=== PATIENT | male | born 1980 | race Caucasian/White ===

== ENCOUNTER 2024-09-28 16:40 | Emergency (ER) | payer BC, SELFPAY ==
--- OUTSIDE RECORDS SUMMARY | 2021-07-19 19:00 | XMS_ITS | Continuity of Care Document ---
Author Organization [facility] Address [address] [address] [place] [address] Phone Care Team Providers Care Plate Driller Name Role Phone Link Diogo LIU Unavailable Unavailable Procedures Procedure Date Init Hosp-da E&m Mod Severity 2 Conscious Sedation Ugi Endo; Dx W/wo Collec Specm Ugi Endo; Dx W/wo Collec Specm 17 Subsqt Hosp-da E&m Minr Compl 7 Init Hosp-da E&m Mod Severity 7 Advance Directives Directive Yes / No Effective Date File Name No Information Encounters Encounter Description Practice Location Reason(s) For Visit Diagnoses Date Provider Providers Copied on Encounter [facility], [address] [address], [place], [place], [id number], tel:[phone] [facility] No Information Link MD Lind. [address] [place] [address], [id number], [place]. tel:[phone] Init Hosp-da E&m Mod Severity [facility], [address] [address], [place], [place], [id number], tel:[phone] [facility] No Information Link MD Lind. [address] [address], [place], [place], [id number], [place]. tel:[phone] Referring Provider: [place], [address]. tel:[phone] [facility], [address] [address], [place], [place], [id number], tel:[phone] [facility] No Information Hillary Berger. [address] [place] [address], [address] [address], [place], [place], [id number], . tel:[phone] Referring Provider: Delia Mccoy, [facility], [place], [place], [facility]. tel:[phone] Subsqt Hosp-da E&m Minr Compl [facility], [address] [address], [place], [place], [id number], tel:[phone] [facility] No Information Claudia Estes. [address] [place] [address], [facility] [address], [place], [place], [id number], . tel:[phone] Referring Provider: Delia Mccoy, [facility] [place], [place], [facility]. tel:[phone] Init Hosp-da E&m Mod Severity [facility] [place], [address] [address], [place], [place], [id number], tel:[phone] [facility] No Information Hillary Berger. [address] [place] [address], [id number], . tel:[phone] Referring Provider: Delia Mccoy, [facility] [place], [place], [facility]. tel:[phone] Family History Family Member Type Diagnosis Age At Onset No Information Payers Payer name Insurance type Covered republican ID Authoriza tion(s) No Information Social History Type Description Quantity Date Captured Comments Sex Male Smoking Status No Information Chief Complaint And Reason For Visit No Information Reason For Referral Reason For Referral No Information History Of Present Illness Encounter Date Complaint History Of Prese nt Illness No Information Functional Status Date Functional Assessmen t No Information Instructions Date Instruction Additional Infor mation No Information Assessments Type Assessment Date No Information Patient Care Teams Name Effective Dates (start - stop) Status Members No Information
[2024-09-28] VITALS (17 sets, daily range): BP systolic 85–153; BP diastolic 62–124; PULSE 44–92; RESP 13–87; TEMP 36.8; O2SAT 91–99; BMI 40.9
--- NOTE | 2024-09-28 16:51 | ED_ITS ---
HPI - General Adult General Date Seen: 09/28/24 Chief complaint: Chest Pain Stated complaint: Shortness of Breath, Chest pains Time Seen by Provider: 09/28/24 16:51 History of Present Illness HPI narrative: This is a pleasant 43-year-old gentleman presenting to the ER with chest pain. Beginning yesterday afternoon, while he was relaxing he has been experiencing some substernal left-sided chest tightness and squeezing. Along with that he has had some shortness of breath. His symptoms were fairly significant overnight and made it difficult night sleep. The symptoms have been continuous since onset yesterday. No clear exacerbating or alleviating factors. Does not change with position, exertion or rest, eating or not eating. No recent illness. No recent cough or fever. No recent travel. No history of DVT or PE. No swelling in his ankles or legs. No associated abdominal pain. No pain radiating up to his jaw, down his arms, or through to his back. He does incidentally mentions that he has had some trouble with some low back pain over the past several weeks. That is really not white came to the ER today. He has an important past medical history notable for pheochromocytoma which apparently caused a low ejection fraction and cardiomyopathy. Also apparently has had 1 or 2 prior strokes and 1 prior seizure. This was evaluated and treated through the [facility] system. He had surgical resection of his adrenal/pheochromocytomas done at [facility] about 10 or 12 years ago. He is chronically on hydrocortisone and fludrocortisone to supplement his adrenal hormones after his adrenalectomies. When he gets sick he does take a stress d ose of these hormones and did take his stress dose this morning. He generally follows with [facility] through [facility]. He had had angiogram about 5 or 6 years ago that was normal. He had an echo few years ago that he thinks showed his ejection fraction was fairly normal, but he cannot recall for sure. His only meds are his renal hormones. He is not on any long-term diuretics, blood pressure meds or other heart meds. He is not on any anti-platelet medications. No seizure meds. Nonsmoker. He lives in [place]. He chose to come here to the ER in [facility] because his mother was seen here recently and did not to wait very long. He was worried he might have to wait several hours if he went to the ER at [facility]. Related Data Home Medications ?Medication ?Instructions ?Recorded ?Confirmed hydrocortisone 10 mg tablet 5 mg PO BID 09/28/2409/28 (Cortef) Allergies Allergy/AdvReac Type Severity Reaction Status Date / Time No Known Drug Allergies Allergy Verified 09/28/24 19:15 Exam Narrative: Exam Narrative: Constitutional: Appears well-developed and well-nourished. He is robust and very tall. Heavyset. Alert. Conversant. Non toxic. HENT: Head: Atraumatic. Nose: Nose normal. Mouth/Throat: Oral mucosa is clear and moist. no trismus. Pharynx normal. Tonsils symmetric. No tonsillar enlargement, erythema, or exudate. Eyes: Conjunctivae normal. EOM normal. Pupils equal, round, and reactive to light. No scleral icterus. Neck: Normal range of motion. Neck supple. No tracheal deviation present. No JVD Cardiovascular: Normal rate, regular rhythm. No gallop. No friction rub. No murmur heard. Symmetric radial and PT artery pulses Pulmonary/Chest: Effort normal. No stridor. No respiratory distress. No wheezes. No rales. No rhonchi . No tenderness. Abdominal: Soft. Bowel sounds normal. No distension. No mass. No tenderness. No rebound. No guarding. Musculoskeletal: RUE: Normal range of motion. No tenderness. No deformity LUE: Normal range of motion. No tenderness. No deformity RLE: Normal range of motion. No edema. No tenderness. No deformity LLE: Normal range of motion. No edema. No tenderness. No deformity Neurological: Alert and oriented to person, place, and time. Normal strength. CN II-VII intact. No sensory deficit. GCS eye subscore is 4. GCS verbal subscore is 5. GCS motor subscore is 6. Normal coordination Skin: Skin is warm and dry. No rash noted. No pallor. Normal capillary refill. Psychiatric: Normal mood. Normal affect. Const: Vital Signs, click to edit/add: Vital Signs - 24 hr 09/28/24 16:46 09/28/24 17:07 09/28/24 17:16 Temperature 98.3 F Pulse Rate 84 92 Pulse Rate [Pulse Oximeter] 58 L Respiratory Rate 18 13 87 H Blood Pressure 85/74 L 108/90 H Blood Pressure [Ri ght Upper Arm] 124/79 Pulse Oximetry 96 96 95 Oxygen Delivery Me thod Room Air 09/28/24 17:18 09/28/24 17:32 09/28/24 17:46 Temperature Pulse Rate 86 83 76 Pulse Rate [Pulse Oximeter] Respiratory Rate 20 13 14 Blood Pressure 104/86 111/98 H 136/124 H Blood Pressure [Ri ght Upper Arm] Pulse Oximetry 94 95 91 Oxygen Delivery Me thod 09/28/24 18:10 09/28/24 18:15 09/28/24 18:17 Temperature Pulse Rate 63 87 Pulse Rate [Pulse Oximeter] Respiratory Rate 15 23 Blood Pressure 101/83 Blood Pressure [Ri ght Upper Arm] 130/110 H Pulse Oximetry 96 94 Oxygen Delivery Me thod 09/28/24 18:32 09/28/24 18:47 09/28/24 19:02 Temperature Pulse Rate 48 L 44 L 54 L Pulse Rate [Pulse Oximeter] Respiratory Rate 19 17 16 Blood Pressure 153/91 H 123/76 100/76 Blood Pressure [Ri ght Upper Arm] Pulse Oximetry 95 93 94 Oxygen Delivery Me thod 09/28/24 19:32 09/28/24 19:45 09/28/24 20:01 Temperature Pulse Rate 62 76 58 L Pulse Rate [Pulse Oximeter] Respiratory Rate 22 14 Blood Pressure 122/79 99/85 Blood Pressure [Ri ght Upper Arm] Pulse Oximetry 95 99 97 Oxygen Delivery Me thod 09/28/24 20:32 09/28/24 21:03 Temperature Pulse Rate 60 56 L Pulse Rate [Pulse Oximeter] Respiratory Rate 13 Blood Pressure 97/65 110/62 Blood Pressure [Ri ght Upper Arm] Pulse Oximetry 95 98 Oxygen Delivery Me thod Course Course ED Course: Recheck-multiple initial blood pressure rechecks were seemed a little bit inaccurate with very narrow pulse pressure. We had the nurses reposition cough, change cuff and then check manual. Blood pressures all seem to be narrow pulse pressure. With his borderline low blood pressure be reluctant to give nitro for his chest pain. We did give a slow dose of fentanyl and this did feel better. Subsequently blood pressures seem to normalize and pulse pressure widened. He was feeling better. Recheck-feeling better. Vital stable. Sinus rhythm monitor. Vital Signs Vital signs: Initial Vital Signs Temperature 98.3 F 09/28/24 16:46 Temperature Source Oral 09/28/24 16:46 Pulse Rate 58 L 09/28/24 16:46 Respiratory Rate 18 09/28/24 16:46 Blood Pressure 124/79 09/28/24 16:46 Blood Pressure Mean 94 09/28/24 16:46 Pulse Oximetry 96 09/28/24 16:46 Oxygen Delivery Method Room Air 09/28/24 16:46 Vital Signs Temperature 98.3 F 09/28/24 16:46 Pulse Rate 58 L 09/28/24 16:46 Respiratory Rate 18 09/28/24 16:46 Blood Pressure 124/79 09/28/24 16:46 Pulse Oximetry 96 09/28/24 16:46 Oxygen Delivery Method Room Air 09/28/24 16:46 Temperature 98.3 F 09/28/24 16:46 Pulse Rate 56 L 09/28/24 21:03 Respiratory Rate 13 09/28/24 21:03 Blood Pressure 110/62 09/28/24 21:03 Pulse Oximetry 98 09/28/24 21:03 Oxygen Delivery Method Room Air 09/28/24 16:46 Medications Administered Medications: Discontinued Medications Generic Name Dose Route Start Last Admin Trade Name Freq PRN Reason Stop Dose Admin Aspirin 324 mg 09/28/24 17:06 09/28/24 17:14 Aspirin 81 Mg Tab.Chew PO 09/28/24 17:07 324 mg ONCE ONE Administration Fentanyl 50 mcg 09/28/24 18:12 09/28/24 18:15 Fentanyl 100 Mcg/2 Ml Inj IVP 50 mcg Q5M PRN Administration Sodium Chloride 1,000 mls @ 1,000 mls/hr 09/28/24 18:00 09/28/24 19:01 0.9 % Sodium Chloride 1000 Ml IV 09/28/24 18:59 Infused .Q1H HELLEN Infusion Medical Decision Making [facility] Narrative Medical decision making narrative: This patient presents to the ER today for evaluation of chest pain and shortness or breath began yesterday.. Differential was broad. No evidence of palpitations, syncope or other cardiac dysrhythmia. We considered possible ACS, however workup with EKG and troponin is negative. Although pain is been going on since last night and initial troponin was normal, we did check a delta troponin and is stable and not rising. Given time since onset of symptoms, I do not think the patient needs to be admitted for further sets of enzymes. EKG shows no evidence for pericarditis. Clinical presentation not suggestive of myocarditis. Chest x-ray shows no evidence for pneumonia, pneumothorax, pulmonary edema, pleural effusion, rib fracture, cardiomegaly. Mediastinum is normal on the x-ray. However with the patient's chest pain and recent low back pain, consider aortic pathology. CT angiogram of his aorta shows normal aorta. No evidence for dissection or aneurysm. There are incidental findings on the angiogram including signs of splenic artery stenosis which is not contributing to his chest pain. No signs of any splenic artery aneurysm rupture. There is also a small pulmonary nodule for which I recommend follow-up in [address] imaging. Discussed in detail with the patient and provided printed copies of his CT him to take to his PCP to arrange necessary follow-up. We considered PE for this patient. Screening D-dimer is normal. No wheezing or bronchospasm to suggest COPD/asthma. No signs of chest wall cellulitis, shingles, injury. With reasonable clinical confidence, I think the patient is safe for outpatient follow up. Discussed return precautions. Questions answered. Patient voices comfort with the plan. Lab Data Labs: Lab Results 09/28/24 09/28/24 09/28/24 Range/Units 17:05 17:07 19:09 WBC 6.43 (4.50-11.00) K/uL RBC 5.27 (4.30-5.90) m/uL Hgb 16.3 (13.5-17.5) gm/dL Hct 46.9 (37.0-53.0) % MCV 89 (80-100) fL MCH 31 (26-34) pg MCHC 35 (32-36) gm/dL RDW Coeff of Autumn 12.5 (11.5-15.5) % Plt Count 258 (140-440) K/uL Neut % (Auto) 44.3 (42.0-72.0) % Lymph % (Auto) 39.0 (20-44) % Powell % (Auto) 8.7 (0.0-11.0) % Eos % (Auto) 7.0 (0.0-7.0) % Baso % (Auto) 0.8 (0.0-3.0) % Neut # (Auto) 2.85 (1.7-7.0) K/uL Lymph # (Auto) 2.51 (0.90-2.90) K/uL Powell # (Auto) 0.60 (0.00-0.90) K/UL Eos # (Auto) 0.45 (0.00-0.50) K/uL Baso # (Auto) 0.05 (0.00-0.30) K/uL Abs Immat Gran (auto) 0.01 (0.00-0.30) K/uL Imm/Tot Granulo (auto) 0.2 % INR 1.03 (0.91-1.10) D-Dimer Quant (PE/DVT) < 0.27 (0.00-0.50) ug/ml Sodium 137 (135-149) mmol/L Potassium 3.3 L (3.6-5.1) mmol/L Chloride 107 (96-114) mmol/L Carbon Dioxide 23 (20-32) mmol/L Anion Gap 7 (7-15) mEq/L BUN 12 (5-24) mg/dL Creatinine 1.0 (0.5-1.5) mg/dL Estimated Creat Clear 120.60 Estimated GFR 95 ml/min Glucose 119 H (60-115) mg/dL Calcium 9.8 (8.4-10.6) mg/dL NT-Pro-B Natriuret Pep 137 (See Note) pg/mL POC Troponin I 0.01 0.01 (0.01-0.04) ng/ml Imaging Data Chest x-ray: Attestation: I have reviewed the pertinent imaging results. Radiologist's impression: IMPRESSION: Mild cardiomegaly. No edema or effusion seen. CT Chest/Ab/Pelvis: Attestation: I have reviewed the pertinent imaging results. Radiologist's impression: Impression: 1. No CT evidence of an acute process involving the chest/abdomen/pelvis; specifically, no aortic dissection. 2. There is focal narrowing of the proximal celiac trunk with poststenotic dilatation, to correlate with symptoms of celiac artery compression syndrome. 3. Solid 7 millimeter pulmonary nodule in the right lower lobe. Recommend correlation with prior imaging if available; otherwise, recommend follow-up chest CT in 3-6 months per Fleischner criteria. 4. Additional incidental findings as detailed above. ECG Data Attestation: I personally reviewed and interpreted this ECG as follows: Interpretation: Sinus tachycardia (computer interpretation is ?undetermined rhythm? but I can see P waves visible in lead V1, V2, V4, V5, V6. Frequent PVCs Rate 103 IA interval about 120 QRS axis is normal. Nonspecific T-wave flattening. No acute ST segment elevation or depression. No old available EKGs for comparison. QTC 482 Discharge Plan Discharge Clinical Impression: Chest pain, Incidental pulmonary nodule, Celiac artery stenosis Patient Disposition: Home, Self-Care Condition: Stable Instructions: Chest Pain (DC), Pulmonary Nodules (ED) Additional Instructions: As we discussed, so far all of your test for your heart and lungs look good. I want her to monitor your chest pain carefully if you have worsening symptoms come back to the ER right away. If you are not completely achieved, please recheck with your regular doctor within 2-3 days. Please follow-up with your regular doctor in bring your lab tests and CT report with you. Ask your doctor to evaluate the findings on CT scan and arrange the necessary follow ups. Ask your doctor to arrange a follow-up CT scan of your lungs in about 6 months to recheck the ear pulmonary nodule. Also ask your doctor to arrange any necessary follow-up for your narrow celiac artery. Prescriptions: No Action hydrocortisone [Cortef] 10 mg tablet 5 mg PO BID Patient Comments: 10 in AM 5 in afternnon Follow Up/Referrals: Provider,Not a Local [Primary Care Provider, Family Practice] Stand Alone Forms: [employer] Info Instructions
--- NOTE | 2024-09-28 17:07 | CRLHL7_ITS ---
For Patients: As a result of the Cures Act, medical imaging exams and procedure reports are released immediately into your electronic medical record. You may view this report before your referring provider. If you have questions, please contact your health care provider. INDICATION: Chest pain, short of breath, history of cardiomyopathy COMPARISON: None. TECHNIQUE: PA and lateral 2 view chest. FINDINGS: Lung volumes are good. No focal or diffuse opacities. No pulmonary edema. No pleural effusion. No pneumothorax. No pneumomediastinum. Mild cardiomegaly. Normal upper mediastinal contours. Bones: Mild wedging of a few vertebral bodies. Disc degeneration. IMPRESSION: Mild cardiomegaly. No edema or effusion seen. Dictated by Barbara Ruelas MD @ 09/28/2024 5:55:21 PM (Electronically Signed)
[2024-09-28] MEDS: ASPIRIN 81 MG TAB.CHEW 324 MG PO (17:14)
[2024-09-28 17:20] LABS: Hematocrit 46.9 % (37.0-53.0); Hemoglobin* 16.3 gm/dL (13.5-17.5); Immature Granulocytes Abs Auto 0.01 K/uL (0.00-0.30); Immature Granulocytes Pct Auto 0.2 %; Lymphocytes Absolute Auto 2.51 K/uL (0.90-2.90); Mean Corpuscular HGB Conc 35 gm/dL (32-36); Mean Corpuscular Hemoglobin 31 pg (26-34); Mean Corpuscular Volume 89 fL (80-100); RDW Coefficient of Variation % 12.5 % (11.5-15.5); Red Blood Count 5.27 m/uL (4.30-5.90); Slide Review Reflex No; White Blood Count* 6.43 K/uL (4.50-11.00)
[2024-09-28 17:30] LABS: Chloride* 107 mmol/L (96-114); Potassium* 3.3 mmol/L (3.6-5.1); Sodium* 137 mmol/L (135-149)
[2024-09-28 17:33] LABS: Blood Urea Nitrogen* 12 mg/dL (5-24); Creatinine* 1.0 mg/dL (0.5-1.5); Est. Creatinine Clearance* 120.60; Estimated Glomerular Filt Rate 95 ml/min
[2024-09-28 17:34] LABS: Anion Gap 7 mEq/L (7-15); Calcium* 9.8 mg/dL (8.4-10.6); Carbon Dioxide* 23 mmol/L (20-32); Glucose* 119 mg/dL (60-115)
[2024-09-28 17:36] LABS: INR 1.03 (0.91-1.10); Prothrombin Time 14.3 Seconds
[2024-09-28 17:45] LABS: NT Pro B Type NatriureticPept* 137 pg/mL (See Note)
[2024-09-28 17:47] LABS: Troponin, Point-of-Care* 0.01 ng/ml (0.01-0.04)
--- OUTSIDE RECORDS SUMMARY | 2024-09-28 17:48 | XMS_ITS | Encounter Summary ---
Author Organization [facility] Address [address] [place] [address] Care Team Providers Care Mds Rn Name Role Phone Delia Gomez APRN, CNP Primary Care Provid er Delia Gomez APRN, CNP Unavailable [phone] Keyona Ferrari MD Unavailable [phone] Keyona Ferrari MD Unavailable [phone] Delia Gomez APRN TAX COMPLIANCE OFFICER Unavailable [phone] Keyona Ferrari MD Unavailable [phone] Encounter Details Date Type Department Care Team (Late st Contact Info) Description 06/22/2021 MyC Medical Advice [facility] Specialty [address] [address] Mayte Mcdowell CNA Social History Tobacco Use Types Packs/Day Years Used Date Smoking Tobacco: Never Smokeless Tobacco: Never Alcohol Use Standard Drinks/Week Comments Yes 0 (1 standard drink = 0.6 oz pur e alcohol) weekly 2-3 drinks PHQ-2 Answer Date Recorded PHQ-2 Score 0 05/23/2018 Sex and Gender Information Value Date Recorded Sex Assigned at Male 12/06/2020 7:06 PM CDT Legal 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 No / Unsure 06/01/2021 2:05 PM CDT documented as of this encounter Plan of Treatment Not on file documented as of this encounter Visit Diagnoses Not on filedocumented in this encounter Additional Health Concerns Infection Onset Date Last Indicated Resolved Time Rule Out COVID-19 02/05/2023 02/05/2023 02/06/2023 11:50 AM AERIAL INSTALLER Rule Out COVID-19 04/18/2023 04/18/2023 04/18/2023 7:49 PM AERIAL INSTALLER documented as of this encounter Care Teams Mds Rn Relationship Specialty Start Date End Date Delia Gomez APRN TAX COMPLIANCE OFFICER [address] [address] PCP - General Nurse Practitioner - Family 08/15/16 Delia Gomez APRN TAX COMPLIANCE OFFICER [address] [address] Assigned PCP 09/23/17 03/03/22 Keyona Ferrari MD [address] [address]348[address] Endocrinology, Diabetes, and Metabolism 03/03/21 Keyona Ferrari MD [address] [address] Assigned Endocrinology Provider 06/05/21 12/09/23 Delia Gomez APRN TAX COMPLIANCE OFFICER [address] [address] Assigned PCP 05/13/22 02/08/24 Keyona Ferrari MD [address] [address] Assigned Endocrinology Provider 06/08/24 documented as of this encounter
--- OUTSIDE RECORDS SUMMARY | 2024-09-28 17:48 | XMS_ITS | Encounter Summary ---
Author Organization [facility] Address [address] [place] [address] Care Team Providers Care Watermaster Name Role Phone Delia Gomez APRN, CNP Primary Care Provid er Delia Gomez APRN, CNP Unavailable [phone] Keyona Ferrari MD Unavailable [phone] Keyona Ferrari MD Unavailable [phone] Delia Gomez APRN INSULATION BOARD HEAD SAW OPERATOR Unavailable [phone] Keyona Ferrari MD Unavailable [phone] Reason for Visit * Reason Comments Medication Refill Encounter Details Date Type Department Care Team (Late st Contact Info) Description 06/03/[address] [place] [address] Delia Gomez APRN [facility] [address] [place], [place] [address] Medication Refill Social History Tobacco Use Types Packs/Day Years Used Date Smoking Tobacco: Never Smokeless Tobacco: Never Alcohol Use Standard Drinks/Week Comments Yes 0 (1 standard drink = 0.6 oz pur e alcohol) weekly 2-3 drinks PHQ-2 Answer Date Recorded PHQ-2 Score 0 05/23/2018 Sex and Gender Information Value Date Recorded Sex Assigned at Male 12/06/2020 7:06 PM CDT Legal Sex Male 4:02 AM TANDEM OPERATOR Gender Identity Male 03/06/2017 7:27 PM TANDEM OPERATOR Sexual Orientation Straight 12/06/2020 7: 06 PM CDT documented as of this encounter Plan of Treatment Not on file documented as of this encounter Visit Diagnoses Diagnosis Adrenal insufficiency (Oleg's disease) (H) Glucocorticoid deficiency Morbid obesity, unspecified obesity type (H) Pheochromocytoma, unspecified laterality Dilated cardiomyopathy (H) Other primary cardiomyopathies CARDIOVASCULAR SCREENING; LDL GOAL LESS THAN 130 documented in this encounter Additional Health Concerns Infection Onset Date Last Indicated Resolved Time Rule Out COVID-19 07/31/2019 07/31/2019 08/01/2019 10:49 PM CDT Rule Out COVID-19 02/05/2023 02/05/2023 02/06/2023 11:50 AM TANDEM OPERATOR Rule Out COVID-19 04/18/2023 04/18/2023 04/18/2023 7:49 PM TANDEM OPERATOR documented as of this encounter Care Teams Watermaster Relationship Specialty Start Date End Date Delia Gomez APRN INSULATION BOARD HEAD SAW OPERATOR [address] [address] PCP - General Nurse Practitioner - Family 08/15/16 Delia Gomez APRN INSULATION BOARD HEAD SAW OPERATOR [address] [address] Assigned PCP 09/23/17 03/03/22 Keyona Ferrari MD [address] [address]78[address] Endocrinology, Diabetes, and Metabolism 03/03/21 Keyona Ferrari MD [address] [address] Assigned Endocrinology Provider 06/05/21 12/09/23 Delia Gomez APRN INSULATION BOARD HEAD SAW OPERATOR [address] [address] Assigned PCP 05/13/22 02/08/24 Keyona Ferrari MD [address] [address] Assigned Endocrinology Provider 06/08/24 documented as of this encounter
--- OUTSIDE RECORDS SUMMARY | 2024-09-28 17:48 | XMS_ITS | Encounter Summary ---
Author Organization [facility] Address [address] [place] [address] Care Team Providers Care Life Educator Name Role Phone Delia Gomez APRN, CNP Primary Care Provid er Delia Gomez APRN, CNP Unavailable +- [phone] Keyona Ferrari MD Unavailable [phone] Keyona Ferrari MD Unavailable [phone] Delia Gomez APRN SPANISH LITERATURE PROFESSOR Unavailable + [phone] Keyona Ferrari MD Unavailable [phone] Encounter Details Date Type Department Care Team (Late st Contact Info) Description 12/06/2020 [facility] Medical Advice [address] [place] [address] Venus Dodson RN Social History Tobacco Use Types Packs/Day Years Used Date Smoking Tobacco: Never Smokeless Tobacco: Never Alcohol Use Standard Drinks/Week Comments Yes 0 (1 standard drink = 0.6 oz pur e alcohol) weekly 2-3 drinks PHQ-2 Answer Date Recorded PHQ-2 Score 0 05/23/2018 Sex and Gender Information Value Date Recorded Sex Assigned at Male 12/06/2020 7:06 PM CDT Legal Sex Male 4:02 AM DIRECTOR OF MATERIALS Gender Identity Male 03/06/2017 7:27 PM DIRECTOR OF MATERIALS Sexual Orientation Straight 12/06/2020 7: 06 PM CDT documented as of this encounter Plan of Treatment Not on file documented as of this encounter Visit Diagnoses Not on filedocumented in this encounter Additional Health Concerns Infection Onset Date Last Indicated Resolved Time Rule Out COVID-19 02/05/2023 02/05/2023 02/06/2023 11:50 AM DIRECTOR OF MATERIALS Rule Out COVID-19 04/18/2023 04/18/2023 04/18/2023 7:49 PM DIRECTOR OF MATERIALS documented as of this encounter Care Teams Life Educator Relationship Specialty Start Date End Date Delia Gomez APRN SPANISH LITERATURE PROFESSOR [address] [place] [address] PCP - General Nurse Practitioner - Family 08/15/16 Delia Gomez APRN SPANISH LITERATURE PROFESSOR [address] [facility] [facility] [place] [address] Assigned PCP 09/23/17 03/03/22 Keyona Ferrari MD [address] [id number] Endocrinology, Diabetes, and Metabolism 03/03/21 Keyona Ferrari MD [address] [id number] Assigned Endocrinology Provider 06/05/21 12/09/23 Delia Gomez APRN SPANISH LITERATURE PROFESSOR [address] [facility] [place] [address] Assigned PCP 05/13/22 02/08/24 Keyona Ferrari MD [address] [id number] Assigned Endocrinology Provider 06/08/24 documented as of this encounter
--- OUTSIDE RECORDS SUMMARY | 2024-09-28 17:48 | XMS_ITS | Clinical Summary ---
Author Organization [facility] Address [address] [place] [address] Care Team Providers Care Boiler Tester Name Role Phone Alexis Armando PA-C Primary Care Provider Source Comments You are receiving this document as you are listed as the primary care provider,follow-up provider, or the patient has been referred to you for consultation.This is in compliance with the Medicare andMedicaid EHR Incentive Program,which states Providers who transition their patient to another setting of careor provider of care or refers their patient to another provider of care shouldprovide summary care record for each transition of care or referral. [facility] Allergies No known active allergies Medications * This document contains information received from the source organization and may not represent a complete record from that organization. hydrocortisone (CORTEF) 10 MG tabletIndications:Per trae history of pheochromocytoma Take 1 Tab by mouth two times a day. 60 Tab 0 7 Active indomethacin (INDOCIN) 50 MG capsule Take 1 Cap by mouth three times a day with meals. 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 Acute ischemic stroke 06/13/2012 Overview (06/13/2012): 2010. Dislocated shoulder 01/17/2010 Overview (06/13/2012): As a result of seizure. Seizure disorder 01/17/2010 Overview (06/13/2012): On Keppra. Followed by Neuro at [facility]. Essential hypertension 01/17/2010 Overview (2014): [facility] Personal history of pheochromocytoma 01/17/2010 Overview (07/17/2012): Bilateral adrenalectomy at [facility] May 2009. Cause: genetic germline mutuation. Endocrinology: Dr. Sergey Cancino at the [facility] [phone] but no longer follows with him. Dr. Cancino stated he should be on Florinef 01.mg daily and Hydrocortisone 10mg BID for life. He should follow with an sport intern yearly. ASHD (arteriosclerotic heart disease) 01/17/2010 CHF (congestive heart failure) 01/17/2010 CAREPLAN: ANTI-COAGULATION 05/31/2009 Overview (05/31/2009): He is managed by the [facility] Morbid obesity 02/17/2005 Overview (11/08/2016): LW Onset: [id number] ; Obesity Morbid Essential hypertension 02/17/2005 Overview (11/08/2016): LW Onset: 37Xav35 ; Hypertension Local infection of skin and subcutaneous tissue 09/29/1999 Overview (2014): [facility] Immunizations Immunization Administration Dates Next Due MMR 10/20/1991,04/30/1980,04/30/1980 OPV, Trivalent (Orimune or tOPV) 07/17/1984,08/19 Td 02/17/2005,01/03/1994 Tdap 04/26/2011 Family History Medical History Relation Name Comments Alcohol/Drug Abuse Father Bipolar Disorder Father Depression Father Headaches Father Allergies Mother Relation Name Status Comments Father Alive Mother Alive Maternal Grandfather (Age 65) Maternal Grandmother Alive Paternal Grandmother 1 (Age 75) Paternal Grandmother 2 (Age 70) Sister Alive Malina, 1984 Social History Tobacco Use Types Packs/Day Years Used Date Smoking Tobacco: Never Smokeless Tobacco: Never Alcohol Use Standard Drinks/Week Comments Yes 2.5 (1 standard drink = 0.6 oz p ure alcohol) Sex and Gender Information Value Date Recorded Sex Assigned at Not on file Legal Sex Male 3:58 AM CDT Gender Identity Not on file Sexual Orientation Not on file Occupation Industry Job Start Date Job End Date student Not on file Not on file 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 file Not on file Not on file Last Filed Vital Signs Vital Sign Reading Time Taken Comments Blood Pressure 117/80 08/28/2017 6:20 PM CDT Pulse 81 08/28/2017 6:20 PM CDT Temperature 36.3 C (97.3 F) 08/28/2017 6:20 PM CDT Respiratory Rate 24 08/28/2017 6:20 PM CDT Oxygen Saturation 96% 08/28/2017 6:20 PM CDT Inhaled Oxygen Concentration - - Weight 168.3 kg (371 lb) 02/18/2016 10:01 AM ELECTRONEURODIAGNOSTIC TECHNOLOGIST Height 196.5 cm (6' 5.36) 06/18/2014 1:28 PM CD T Body Mass Index 43.58 06/18/2014 1:28 PM CDT Plan of Treatment Health Maintenance Due Date Last Done Comments Colon Cancer Screening Plan Due 1978 Hep C Screening (Preventive Services) 1978 IPV (Polio) Vaccine (3 of 3 - 4-dose series) 01/17/1985 07/17/1984, 09/15/1980 HIV Screening (Preventive Services) 1994 Adult Preventive Visit 1996 HepB Vaccine (1) 1997 Cholesterol 06/21/2017 06/21/2012, 12/18, 10/06/2004, Additional history exists DTaP/Tdap/Td Vaccine (4 - Tdap) 04/26/2021 04/26/2011, 04/26/2007, 02/17/2005, Additional history exists COVID-19 Vaccine ( season) 2023 Influenza Vaccine (#1) 2024 03/08/2017 Zoster/Shingles Vaccine (1 of 2) 2028 HPV Vaccine Aged Out No longer eligi ble based on patient's age to complete this topic HepA Vaccine Aged Out No longer eligi ble based on patient's age to complete this topic Hib Vaccine Aged Out No longer eligi ble based on patient's age to complete this topic MCV4 Vaccine Aged Out No longer eligi ble based on patient's age to complete this topic Meningococcal B Vaccine Aged Out No l onger eligible based on patient's age to complete this topic Pneumococcal Vaccine Aged Out No long er eligible based on patient's age to complete this topic Procedures Procedure Name Priority Date/Time Associated Diagnosis Comments LIPID PANEL & DIRECT LDL (IF NEEDED) Routine 06/21/2012 9:47 AM CDT Preventative health care from Last 3 Months or Most Recently Relevant to Health Maintenance Results * (ABNORMAL) LIPID PANEL AND DIRECT LDL(IF NEEDED) (06/21/2012 9:47 AM CDT) Cholesterol 148 0 - 199 mg/dl [facility] Triglyceride 194(H) 0 - 149 mg/dl [facility] HDL 33(L) >40 mg/dl [facility] LDL, Calc. 76 0 - 129 mg/dl [facility] Non HDL Chol, Calc 115 mg/dl [facility] Hours Fasting 12 hours [facility] 06/21/2012 9:47 AM CDT 06/21/2012 9:58 AM CDT Aggie Barrientos PA-C LAB_1 [facility] lt [facility] [address] [address] from Last 3 Months or Most Recently Relevant to Health Maintenance Care Teams Boiler Tester Relationship Specialty Start Date End Date Alexis Armando PA-C [facility] [address] PCP - General 11/18/15
--- OUTSIDE RECORDS SUMMARY | 2024-09-28 17:48 | XMS_ITS | Encounter Summary ---
Author Organization [place] Address [address] [place] [address] Care Team Providers Care Slusher Operator Name Role Phone Delia Gomez APRN, CNP Primary Care Provid er Delia Gomez APRN, CNP Unavailable + [phone] Keyona Ferrari MD Unavailable [phone] Keyona Ferrari MD Unavailable [phone] Delia Gomez APRN TECHNICAL SERVICES REP Unavailable Keyona Ferrari MD Unavailable [phone] Reason for Visit * Reason Comments Medication Refill Encounter Details Date Type Department Care Team (Late st Contact Info) Description 05/29/[address] [place] [address] Delia Gomez APRN [facility] [address] [place], [place] [id number] Medication Refill Social History Tobacco Use Types [...] PM CDT Legal Sex Male 4:02 AM JAVASCRIPT UI DEVELOPER Gender Identity Male 03/06/2017 7:27 PM JAVASCRIPT UI DEVELOPER Sexual Orientation Straight 12/06/2020 7: 06 PM CDT COVID-19 Exposure Response Date Recorded In the last month, have you been in contact with someone who was confirmed or suspected to have Coronavirus / COVID-19? No / Unsure 06/01/2021 2:05 PM CDT documented as of this encounter Miscellaneous Notes * Telephone Encounter - Sosa Brito LPN - 05/31/2021 1:35 PM CDT 06-01-2021. 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 documented in this encounter Additional Health Concerns Infection Onset Date Last Indicated Resolved Time Rule Out COVID-19 02/05/2023 02/05/2023 02/06/2023 11:50 AM JAVASCRIPT UI DEVELOPER Rule Out COVID-19 04/18/2023 04/18/2023 04/18/2023 7:49 PM JAVASCRIPT UI DEVELOPER documented as of this encounter Care Teams Slusher Operator Relationship Specialty Start Date End Date Delia Gomez APRN CNP [address] [place] [address] PCP - General Nurse Practitioner - Family 08/15/16 Delia Gomez APRN TECHNICAL SERVICES REP [address] [place] [address] Assigned PCP 09/23/17 03/03/22 Keyona Ferrari MD [address] [id number] Endocrinology, Diabetes, and Metabolism 03/03/21 Keyona Ferrari MD [address] [id number] Assigned Endocrinology Provider 06/05/21 12/09/23 Delia Gomez APRN TECHNICAL SERVICES REP [address] [place] [address] Assigned PCP 05/13/22 02/08/24 Keyona Ferrari MD [address] [id number] Assigned Endocrinology Provider 06/08/24 documented as of this encounter
--- OUTSIDE RECORDS SUMMARY | 2024-09-28 17:48 | XMS_ITS | Encounter Summary ---
Author Organization [facility] Address [address] [address] Care Team Providers Care Electric Power Line Repairer Name Role Phone Alexis Armando PA-C Primary Care Provider Encounter Details Date Type Department Care Team (Late st Contact Info) Description 10/27/1994 Notes/Orders [facility] [id number] [place] [address] Haley Boyd MD Social History Tobacco Use Types Packs/Day Years Used Date Smoking Tobacco: Never Assessed Sex and Gender Information Value Date Recorded Sex Assigned at Not on file Legal Sex Male 3:58 AM CDT Gender Identity Not on file Sexual Orientation Not on file documented as of this encounter Plan of Treatment Not on file documented as of this encounter Visit Diagnoses Not on filedocumented in this encounter Care Teams Electric Power Line Repairer Relationship Specialty Start Date End Date Alexis Armando PA-C [facility] [address] PCP - General 11/18/15 documented as of this encounter
--- OUTSIDE RECORDS SUMMARY | 2024-09-28 17:48 | XMS_ITS | Encounter Summary ---
Author Organization [facility] Address [address] [place] [address] Care Team Providers Care Digital Production Manager Name Role Phone Delia Gomez APRN, CNP Primary Care Provid er Delia Gomez APRN, CNP Unavailable +- [phone] Keyona Ferrari MD Unavailable [phone] Keyona Ferrari MD Unavailable [phone] Delia Gomez APRN CREMATORIUM OPERATOR Unavailable [phone]- [phone] Keynoa Ferrari MD Unavailable [phone] Reason for Visit * Reason Comments Medication Refill Encounter Details Date Type Department Care Team (Late st Contact Info) Description 09/01/2019 [facility] [address] [address] [place]zy [place], [address] [address] Medication Refill Social History Tobacco Use Types [...] PM CDT Legal Sex Male 4:02 AM PAINT PREPARER Gender Identity Male 03/06/2017 7:27 PM PAINT PREPARER Sexual Orientation Straight 12/06/2020 7: 06 PM CDT documented as of this encounter Plan of Treatment Not on file documented as of this encounter Visit Diagnoses Diagnosis Acute idiopathic gout of right foot documented in this encounter Additional Health Concerns Infection Onset Date Last Indicated Resolved Time Rule Out COVID-19 02/05/2023 02/05/2023 02/06/2023 11:50 AM PAINT PREPARER Rule Out COVID-19 04/18/2023 04/18/2023 04/18/2023 7:49 PM PAINT PREPARER documented as of this encounter Care Teams Digital Production Manager Relationship Specialty Start Date End Date Delia Gomez APRN CREMATORIUM OPERATOR [address] [id number] PCP - General Nurse Practitioner - Family 08/15/16 Delia Gomez APRN CREMATORIUM OPERATOR [address] [address] Assigned PCP 09/23/17 03/03/22 Keyona Ferrari MD [address] [address] Endocrinology, Diabetes, and Metabolism 03/03/21 Keyona Ferrari MD [address] [address] Assigned Endocrinology Provider 06/05/21 12/09/23 Delia Gomez APRN CREMATORIUM OPERATOR [address] [address] Assigned PCP 05/13/22 02/08/24 Keyona Ferrari MD [address] [address] Assigned Endocrinology Provider 06/08/24 documented as of this encounter
--- OUTSIDE RECORDS SUMMARY | 2024-09-28 17:48 | XMS_ITS | Clinical Summary ---
Author Organization [facility] Address [address] [place] [address] Care Team Providers Care Dry Ice Machine Operator Name Role Phone Delia Gomez APRN, CNP Primary Care Provid er Keyona Ferrari MD Unavailable [phone] Keyona Ferrari MD Unavailable [phone] Allergies No known active allergies Medications albuterol (PROAIR HFA/PROVENTIL HFA/VENTOLIN HFA) 108 (90 Base) MCG/ACT inhalerIndications: Acute bronchitis with coexisting condition requiring prophylactic treatment Inhale 2 puffs into the lungs every 6 hours as needed 18 g 3 Active benzonatate (TESSALON) 100 MG capsule Take 1 capsule (100 mg) by mouth 3 times daily as needed 20 capsule 4 Active hydrocortisone (CORTEF) 10 MG tabletIndications:P heochromocytoma, unspecified laterality,Adrenal insufficiency (Inyo's disease) (H),Morbid obesity, unspecified obesity type (H),Dilated cardiomyopathy (H),CARDIOVASCULAR SCREENING; LDL GOAL LESS THAN 130 Take 2 tablets (20 mg) by mouth daily AND 1 tablet (10 mg) daily at 2 pm. Plus extra for sick day dosing. 400 tablet 3 5 Active fludrocortisone (FLORINEF) 0.1 MG tabletIndications:P heochromocytoma, unspecified laterality,Adrenal insufficiency (Inyo's disease) (H) Take 1 tablet (0.1 mg) by mouth daily. 90 tablet 3 5 Active hydrocortisone sodium succinate PF (SOLU-CORTEF) 100 mg/2 mL injectionIndication s:Pheochromocytoma, unspecified laterality,Adrenal insufficiency (Inyo's disease) (H),Morbid obesity, unspecified obesity type (H),Dilated cardiomyopathy (H),CARDIOVASCULAR SCREENING; LDL GOAL LESS THAN 130 Inject 2 mLs (100 mg) into the muscle once for 1 dose. For adrenal crisis 2 mL 5 Active Syringe/Needle, Disp, 22G X 1 3 ML MISCIndications:Adr enal insufficiency (Oleg's disease) (H) 1 each every 14 days. 1 each 3 5 Active Active Problems Problem Noted Date Diagnosed Date Elevated troponin 07/18/2021 Chronic kidney disease, stage 3 12/30/2020 Chest pain, atypical 08/01/2019 Chest pain 07/31/2019 Constipation 03/27/2018 Hyponatremia 09/14/2017 NSTEMI (non-ST elevated myocardial infarction) 1 05/07/2016 Adrenal crisis 08/07/2016 Adrenal insufficiency (Oleg's disease) 2016 Sepsis 08/11/2014 Morbid obesity Overview (08/15/2016): s/p gastric bypass Pheochromocytoma Overview (08/15/2016): status post bilateral adrenalectomy Dilated cardiomyopathy Overview (08/15/2016): secondary to pheochromocytoma Resolved Problems Problem Noted Date Diagnosed Date Resolved Date Pain in joint, shoulder region 02/04/2010 04/20/2010 Other joint derangement, not elsewhere classified, shoulder region 02/04/2010 04/20/2010 Closed dislocation of shoulder 02/04/2010 04/20/2010 Overview (12/18/2014): Problem list name updated by automated process. Provider to review Immunizations Immunization Administration Dates Next Due Influenza (prior to 2023) 04/26/2009 Influenza Vaccine (Flucelvax Quadrivalent) 12/10 Influenza Vaccine >6 months,quad, PF 03/08/2017 MMR (MMRII) 10/20/1991,04/30/1980 OPV, trivalent, live 07/17/1984,09/15/1980 TDAP Vaccine (Adacel) 04/26/2007 Td (Adult), Adsorbed 02/17/2005,01/03/1994 Tdap (Adult) Unspecified Formulation 04/26/2011 Family History Medical History Relation Comments Lymphoma Father Heart Disease Maternal Grandfather Unknown/Adopted Mother Relation Status Comments Father Alive Maternal Grandfather Mother Alive Social History Tobacco Use Types Packs/Day Years Used Date Smoking Tobacco: Never Smokeless Tobacco: Never Tobacco Cessation:Counseling Given: Yes Alcohol Use Standard Drinks/Week Comments Yes 0 (1 standard drink = 0.6 oz pur e alcohol) weekly 2-3 drinks PHQ-2 Answer Date Recorded PHQ-2 Score 0 05/23/2018 Adolescent Education Answer Date Record ed Getting School Help Needed Not on file 12/28 Sex and Gender Information Value Date Recorded Sex Assigned at Male 12/06/2020 7:06 PM CDT Legal Sex Male 4:02 AM CONSTRUCTION DRIVER Gender Identity Male 03/06/2017 7:27 PM CONSTRUCTION DRIVER Sexual Orientation Straight 12/06/2020 7: 06 PM CDT Last Filed Vital Signs Vital Sign Reading Time Taken Comments Blood Pressure 142/108 04/18/2023 10:11 PM CONSTRUCTION DRIVER Pulse 67 04/18/2023 10:11 PM CONSTRUCTION DRIVER Temperature 37 C (98.6 F) 04/18/2023 5:40 PM CONSTRUCTION DRIVER Respiratory Rate 18 04/18/2023 5:41 PM CONSTRUCTION DRIVER Oxygen Saturation 95% 04/18/2023 10:12 PM CONSTRUCTION DRIVER Inhaled Oxygen Concentration - - Weight 163.3 kg (360 lb) 04/18/2023 5:40 PM CONSTRUCTION DRIVER Height 198.1 cm (6' 6) 04/18/2023 5:40 PM CONSTRUCTION DRIVER Body Mass Index 41.6 04/18/2023 5:40 PM CONSTRUCTION DRIVER Plan of Treatment Health Maintenance Due Date Last Done Comments ANNUAL REVIEW OF HM ORDERS 1978 CT COLONOGRAPHY 1978 FIT 1978 FLEX SIG 1978 MICROALBUMIN 1978 sDNA (Cologuard) 1978 YEARLY PREVENTIVE VISIT 1981 COLONOSCOPY 1988 COLORECTAL CANCER SCREENING 1988 HEPATITIS B VACCINE (1 of 3 - 19+ 3-dose series) 1997 PNEUMOCOCCAL VACCINE: PEDIATRICS (0 to 5 YEARS) AND AT-RISK PATIENTS (6 to 49 YEARS) (1 of 2 - PCV) 1997 LIPID 01/10/2011 01/10/2010, 02/0 03/2009, 04/14/2009 DTAP/TDAP/TD VACCINE (4 - Td or Tdap) 04/26/2021 04/26/2011, 04/26/2011, 04/26/2007, Additional history exists ADVANCE CARE PLANNING 03/28/2023 03/28/2018 BMP 10/17/2023 04/18/2023, 05/17, 06/04/2022, Additional history exists COVID-19 VACCINE ( season) 2023 04/09/2021, 08/03/2020, 07/13/2020, Additional history exists PHQ-2 (once per calendar year) 2024 08/13/2019, 05/23/2018, 03/29/2017, Additional history exists HEMOGLOBIN 04/18/2024 04/18/2023, 11, 06/04/2022, Additional history exists INFLUENZA VACCINE (#1) 2024 , 05/23/2018 (Declined), 03/08/2017, Additional history exists DIABETES SCREENING 04/18/2026 04/18/2023, 0 06/04/2022, 06/04/2022, Additional history exists ZOSTER VACCINE (1 of 2) 2028 HEPATITIS C SCREENING Completed 09/18/2016 HIV SCREENING Completed 09/18/2016 URINALYSIS Completed 07/05/2022, 050 04/2021, 11/19/2018, Additional history exists HPV VACCINE Aged Out No longer eligi ble based on patient's age to complete this topic MENINGITIS VACCINE Aged Out No longer eligible based on patient's age to complete this topic Procedures Procedure Name Priority Date/Time Associated Diagnosis Comments CBC WITH PLATELETS AND DIFFERENTIAL STAT 04/18/2023 5:50 PM CONSTRUCTION DRIVER BASIC METABOLIC PANEL STAT 04/18/2023 5:50 PM CONSTRUCTION DRIVER UA MACROSCOPIC WITH REFLEX TO MICRO AND CULTURE Routine 07/05/2022 2:12 PM CDT Urinary problem HIV ANTIGEN ANTIBODY COMBO Routine 09/18/2016 5:15 PM CDT Screen for STD (sexually transmitted disease) HEPATITIS C ANTIBODY Routine 09/18/2016 5:15 PM CDT Screen for STD (sexually transmitted disease) LIPID PROFILE Routine 01/10/2010 7:15 AM CDT from Last 3 Months or Most Recently Relevant to Health Maintenance Results * CBC with platelets and differential (04/18/2023 5:50 PM CONSTRUCTION DRIVER) [facility] WBC Count 9.2 4.0 - 11.0 10e3/uL 04/18/2023 6:33 PM CONSTRUCTION DRIVER LABORATORY RBC Count 4.73 4.40 - 5.90 10e6/uL 04/18/2023 6:33 PM CONSTRUCTION DRIVER LABORATORY Hemoglobin 14.4 13.3 - 17.7 g/dL 04/18/2023 6:33 PM CONSTRUCTION DRIVER LABORATORY Hematocrit 41.9 40.0 - 53.0 % 04/18/2023 6:33 PM CONSTRUCTION DRIVER LABORATORY MCV 89 78 - 100 fL 04/18/2023 6:33 PM CONSTRUCTION DRIVER LABORATORY MCH 30.4 26.5 - 33.0 pg 04/18/2023 6:33 PM CONSTRUCTION DRIVER LABORATORY MCHC 34.4 31.5 - 36.5 g/dL 04/18/2023 6:33 PM CONSTRUCTION DRIVER LABORATORY RDW 12.5 10.0 - 15.0 % 04/18/2023 6:33 PM CONSTRUCTION DRIVER LABORATORY Platelet Count 220 150 - 450 10e3/uL 04/18/2023 6:33 PM CONSTRUCTION DRIVER LABORATORY % Neutrophils 66 % 04/18/2023 6:33 PM CONSTRUCTION DRIVER LABORATORY % Lymphocytes 24 % 04/18/2023 6:33 PM CONSTRUCTION DRIVER LABORATORY % Monocytes 6 % 04/18/2023 6:33 PM CONSTRUCTION DRIVER LABORATORY % Eosinophils 3 % 04/18/2023 6:33 PM CONSTRUCTION DRIVER LABORATORY % Basophils 1 % 04/18/2023 6:33 PM CONSTRUCTION DRIVER LABORATORY % Immature Granulocytes 0 % 04/18/2023 6:33 PM CONSTRUCTION DRIVER LABORATORY NRBCs per 100 WBC 0 <1 /100 024 6:33 PM CONSTRUCTION DRIVER LABORATORY Absolute Neutrophils 6.0 1.6 - 8.3 10e3/uL 04/18/2023 6:33 PM [facility] Absolute Lymphocytes 2.2 0.8 - 5.3 10e3/uL 04/18/2023 6:33 PM [facility] Absolute Monocytes 0.6 0.0 - 1.3 10e3/uL 04/18/2023 6:33 PM [facility] Absolute Eosinophils 0.3 0.0 - 0.7 10e3/uL 04/18/2023 6:33 PM [facility] Absolute Basophils 0.1 0.0 - 0.2 10e3/uL 04/18/2023 6:33 PM [facility] Absolute Immature Granulocytes 0.0 <=0.4 10e3/uL 04/18/2023 6:33 PM [facility] Absolute NRBCs 0.0 10e3/uL 04/18/2023 6:33 PM [facility] Blood BLOOD SPECIMEN / Unknown Venipuncture / Unknown 04/18/2023 5:50 PM [facility] 04/18/2023 6:29 PM [facility] us Jocelynn Raygoza MD LAB - BLOOD ORDERABLES F inal Result LABORATORY [facility] [address] 1[address] floor, [address] [place] [id number] [phone] * Basic metabolic panel (04/18/2023 5:50 PM [facility]) [facility] Sodium 137 135 - 145 mmol/L 04/18/2023 6:55 PM [facility] Comment:Reference intervals for this test were updated on 12/12/2022 to more accurately reflect our healthy population. There may be differences in the flagging of prior results with similar values performed with this method. Interpretation of those prior results can be made in the context of the updated reference intervals. Potassium 3.9 3.4 - 5.3 mmol/L 04/18/2023 6:55 PM [facility] Chloride 103 98 - 107 mmol/L 04/18/2023 6:55 PM [facility] Carbon Dioxide (CO2) 26 22 - 29 mmol/L 04/18/2023 6:55 PM [facility] Anion Gap 8 7 - 15 mmol/L 04/18/2023 6:55 PM [facility] Urea Nitrogen 9.4 6.0 - 20.0 mg/dL 04/18/2023 6:55 PM [facility] Creatinine 0.89 0.67 - 1.17 mg/dL 04/18/2023 6:55 PM [facility] GFR Estimate >90 >60 mL/min/1. 73m2 04/18/2023 6:55 PM [facility] Calcium 9.2 8.6 - 10.0 mg/dL 04/18/2023 6:55 PM [facility] Glucose 93 70 - 99 mg/dL 04/18/2023 6:55 PM [facility] Blood BLOOD SPECIMEN / Unknown Venipuncture / Unknown 04/18/2023 5:50 PM CONSTRUCTION DRIVER 04/18/2023 6:29 PM [facility] us Jocelynn Raygoza MD LAB - BLOOD ORDERABLES F inal Result LABORATORY [facility] [address] floor, [address] [place] [address], [facility] [phone] * (ABNORMAL) UA Macro with Reflex to Micro and Culture - lab collect (07/05/2022 2:12 PM CDT) Color Urine Yellow Colorless, Straw, Light Yellow, Yellow 07/05/2022 2:19 PM CDT LABORATORY Appearance Urine Slightly Cloudy(A) Clear 07/05/2022 2:19 PM CDT [facility] Glucose Urine Negative Negative mg/dL 07/05/2022 2:19 PM CDT [facility] Bilirubin Urine Negative Negative 2:19 PM CDT [facility] Ketones Urine Negative Negative mg/dL 07/05/2022 2:19 PM CDT [facility] Specific [place] Urine 1.010 1.003 - 1.035 07/05/2022 2:19 PM CDT [facility] Blood Urine Moderate(A) Negative 07/05/2022 2:19 PM CDT LABORATORY pH Urine 6.0 5.0 - 7.0 07/05/2022 2:19 PM CDT [facility] Protein Albumin Urine 100(A) Negative mg/dL 07/05/2022 2:19 PM CDT [facility] Urobilinogen Urine 0.2 0.2, 1.0 E.U./dL 07/05/2022 2:19 PM CDT [facility] Nitrite Urine Negative Negative 07/05/2022 2:19 PM CDT [facility] Leukocyte Esterase Urine Large(A) Negative 07/05/2022 2:19 PM CDT [facility] Urine MID-STREAM URINE SPECIMEN / Unknown Non-blood Collection / Unknown 07/05/2022 2:12 PM CDT 07/05/2022 2:15 PM CDT us Iman Parson MD LAB - URINE ORDERABLES Final Result LABORATORY [facility] [id number] [place] [address] (no room number, [address] [facility]) [place] [address], [facility] [phone] * HIV Antigen Antibody Combo (09/18/2016 5:15 PM CDT) HIV Antigen Antibody Combo Nonreactive HIV-1 p24 Ag & HIV-1/HIV-2 Ab Not Detected NR [facility] Blood specimen (specimen) 09/18/2016 5:15 PM CDT 09/18/2016 5:16 PM CDT us Umm Mansfield MD LAB - BLOOD ORDERA BLES Final Result [facility] [address] [place] [address] * Hepatitis C antibody (09/18/2016 5:15 PM CDT) Hepatitis C Antibody Nonreactive Assay performance characteristics have not been established for newborns, infants, and children NR [facility] Blood specimen (specimen) 09/18/2016 5:15 PM CDT 09/18/2016 5:16 PM CDT us Umm Mansfield MD LAB - BLOOD ORDERA BLES Final Result [address] [address] * (ABNORMAL) Lipid panel (01/10/2010 7:15 AM CDT) Cholesterol 174 0 - 200 mg/dL [facility] Comment: LDL Cholesterol is the primary guide to therapy. The NCEP recommends further evaluation of: patients with cholesterol <200 mg/dL if additional risk factors are present, cholesterol >240 mg/dL, triglycerides >150 mg/dL, or HDL <40 mg/dL. Triglycerides 165(H) 0 - 150 mg/dL [facility] HDL Cholesterol 57 40 - 110 mg/dL [facility] LDL Cholesterol Calculated 85 0 - 129 mg/dL [facility] Comment: LDL Cholesterol is the primary guide to therapy: LDL-cholesterol goal in high risk patients is <100 mg/dL and in very high risk patients is <70 mg/dL. VLDL-Cholesterol 33(H) 0 - 30 mg/dL [facility] Cholesterol/HDL Ratio 3.1 0.0 - 5.0 [facility] 01/10/2010 7:15 AM CDT 01/10/2010 us Chen Mccoy MD LAB - BLOOD ORDERABLES Final Result [facility] from Last 3 Months or Most Recently Relevant to Health Maintenance [place] For more information, please contact: [phone] * Full Code (Latest Code Status on File) Date Activated Date Inactivated Comments 07/18/2021 6:24 PM 07/21/2021 12:03 PM All basic and advanced life-sustaining interventions are performed as appropriate Question Answer Comments Code status determined by: Discussion with patie nt/ legal decision maker * Full Code Date Activated Date Inactivated Comments 08/04/2019 4:57 PM 08/05/2019 2:24 PM Question Answer Comments Code status determined by: Discussion with patie nt/legal decision maker * Full Code Date Activated Date Inactivated Comments 08/02/2019 12:45 PM 08/04/2019 4:57 PM Question Answer Comments Code status determined by: Discussion with patie nt/legal decision maker * Full Code Date Activated Date Inactivated Comments 07/31/2019 10:55 PM 08/02/2019 12:45 PM Question Answer Comments Code status determined by: Discussion with patie nt/legal decision maker * Full Code Date Activated Date Inactivated Comments 03/27/2018 3:56 AM 03/28/2018 4:50 PM Question Answer Comments Code status determined by: Discussion with patie nt/legal decision maker Care Teams Dry Ice Machine Operator Relationship Specialty Start Date End Date Delia Gomez APRN CNP [address] [place] [address] PCP - General Nurse Practitioner - Family 08/15/16 Keyona Ferrari MD [address] [address] Endocrinology, Diabetes, and Metabolism 03/03/21 Keyona Ferrari MD [address] [address] Assigned Endocrinology Provider 06/08/24
--- OUTSIDE RECORDS SUMMARY | 2024-09-28 17:48 | XMS_ITS | Encounter Summary ---
[facility] Address [address] [address] Care Team Providers Care Tree Loader Meat Name Role Phone Alexis Armando PA-C Primary Care Provider Encounter Details Date Type Department Care Team (Late st Contact Info) Description 04/21/1997 Notes/Orders [facility] [id number] [place] [id number] Jass Jiang MD Social History Tobacco Use Types Packs/Day Years Used Date Smoking Tobacco: Never Alcohol Use Standard Drinks/Week Comments No 0 (1 standard drink = 0.6 oz pur e alcohol) Sex and Gender Information Value Date Recorded Sex Assigned at Not on file Legal Sex Male 3:58 AM CDT Gender Identity Not on file Sexual Orientation Not on file Occupation Industry Job Start Date Job End Date student Not on file Not on file Not on file documented as of this encounter Plan of Treatment Not on file documented as of this encounter Visit Diagnoses Not on filedocumented in this encounter Care Teams Tree Loader Meat Relationship Specialty Start Date End Date Alexis Armando PA-C [facility] [place] [address] PCP - General 11/18/15 documented as of this encounter
--- OUTSIDE RECORDS SUMMARY | 2024-09-28 17:48 | XMS_ITS | Encounter Summary ---
[facility] Address [address] [address] Care Team Providers Care Legal Manager Name Role Phone Alexis Armando PA-C Primary Care Provider Encounter Details Date Type Department Care Team (Latest Contact Info) Description 05/21/1996 Notes/Orders Rishi Prince MD Social History Tobacco Use Types Packs/Day [...] on filedocumented in this encounter Care Teams Legal Manager Relationship Specialty Start Date End Date Alexis Armando PA-C [facility] [place] [id number] PCP - General 11/18/15 documented as of this encounter
--- OUTSIDE RECORDS SUMMARY | 2024-09-28 17:48 | XMS_ITS ---
Author Organization [facility] Address [address] [place] [address] Care Team Providers Care Plasticator Name Role Phone Unavailable Unavailable Unavailable Allergies, Adverse Reactions, Alerts This patient has no known allergies or adverse reactions. Problems This patient has no known problems.
--- OUTSIDE RECORDS SUMMARY | 2024-09-28 17:48 | XMS_ITS | Encounter Summary ---
Author Organization [facility] Address [address] [place] [address] Care Team Providers Care Dewaterer Operator Name Role Phone Alexis Armando PA-C Primary Care Provider [phone] Encounter Details Date Type Department Care Team (Late st Contact Info) Description 06/25/2012 Scanned History External to Transferred Record, Provider [facility] Social History Tobacco Use Types Packs/Day Years [...] on file documented as of this encounter Progress Notes * Transferred Record, Provider - 06/25/2012 12:00 AM CDT documented in this encounter Plan of Treatment Not on file documented as of this encounter Visit Diagnoses Not on filedocumented in this encounter Care Teams Dewaterer Operator Relationship Specialty Start Date End Date Alexis Armando PA-C [facility] [place] [address] [place] [address] PCP - General 11/18/15 documented as of this encounter
[2024-09-28 17:51] LABS: D Dimer Quantitative* < 0.27 ug/ml (0.00-0.50)
--- NOTE | 2024-09-28 18:07 | CRLHL7_ITS ---
For Patients: As a result of the 21st Century Cures Act, medical imaging exams and procedure reports are released immediately into your electronic medical record. You may view this report before your referring provider. If you have questions, please contact your health care provider. Indication: Chest pain Technique: CTA chest/abdomen/pelvis, aortic dissection protocol with unenhanced CT of the chest and CTA chest/abdomen/pelvis utilizing 95 mL Isovue 370 IV contrast. 3D/MIP post-processing on an independent workstation was performed. Comparison: None Findings: Heart/vasculature: Mild cardiomegaly. No pericardial effusion. Trace LAD coronary artery calcifications. No intramural hematoma of the thoracic aorta. There is no dissection, aneurysm, pseudoaneurysm, acute arterial occlusion, or active arterial bleeding. There is focal narrowing of the proximal 118). Chest: No imaged thyroid nodules. No thoracic lymphadenopathy. No focal airspace consolidation, pleural effusion, or pneumothorax. There are few tiny perifissural nodules along the right minor fissure, favored to represent small benign intrapulmonary lymph nodes. There are few solid, predominantly subpleural pulmonary nodules bilaterally, the largest of which measures approximately 7 millimeters in the posterior aspect of the right upper lobe (series number 7, image 49). The airways are clear. Abdomen/pelvis: Tiny calcification versus focus of attenuation along the lateral most aspect of hepatic segment 6, favored to represent either a tiny calcified granuloma or a tiny flash filling hepatic hemangioma. No suspicious hepatic lesions. Status post cholecystectomy. No biliary ductal dilatation. The spleen and pancreas are unremarkable. Likely postsurgical changes of adrenalectomy bilaterally. The kidneys are normal in size and perfusion a normal fashion. No suspicious enhancing renal masses or lesions. Cortical scarring at the upper pole of the left kidney. Simple appearing exophytic cyst at the upper pole of the left kidney measuring 2.5 centimeters. No renal calculi or hydroureteronephrosis. The bladder, seminal vesicles, and prostate are unremarkable. There is no evidence of bowel obstruction or inflammation. Postsurgical changes of Katherine-en-Y gastric bypass. The appendix is normal. No free air, free fluid, or abscess. No abdominopelvic lymphadenopathy. Soft tissue/musculoskeletal: Mild bilateral gynecomastia. There is a left spigelian hernia containing fat and a few vessels with neck measuring approximately 1.7 centimeters in herniating fat may measuring approximally 21 centimeters in greatest dimension (craniocaudal; series number 8, image 79) without complication. No acute fracture or malalignment. Mild degenerative changes of the spine. No suspicious osseous lesions. Impression: 1. No CT evidence of an acute process involving the chest/abdomen/pelvis; specifically, no aortic dissection. 2. There is focal narrowing of the proximal celiac trunk with poststenotic dilatation, to correlate with symptoms of celiac artery compression syndrome. 3. Solid 7 millimeter pulmonary nodule in the right lower lobe. Recommend correlation with prior imaging if available; otherwise, recommend follow-up chest CT in 3-6 months per Fleischner criteria. 4. Additional incidental findings as detailed above. Please note that all CT scans at this facility use dose modulation, iterative reconstruction, and/or weight-based dosing when appropriate to reduce radiation dose to as low as reasonably achievable. Dictated by Sandeep Francis MD @ 09/28/2024 8:29:24 PM (Electronically Signed)
[2024-09-28 19:19] LABS: Troponin, Point-of-Care* 0.01 ng/ml (0.01-0.04)
== END 2024-09-28 21:26 | disposition home or self-care (01) ==
PROVIDERS: Emergency Provider Emergency Medicine
DX: R07.9 Chest pain, unspecified (principal); R91.1 Solitary pulmonary nodule; K91.81 Other intraoperative complications of digestive system
CPT/HCPCS: 36415; 71046; 71275; 74174; 80048; 83880; 84484; 85025; 85379; 85610; 93005; 96374; 99284; 99285; A9270; J3010; J7030; Q9967